=== PATIENT | male | born 2000 | race African-American/Black ===

== ENCOUNTER → 2021-04-17 | Emergency (ER) | payer BC ==
[~2021-04-17] VITALS: Ht 180.3 cm; Wt 77.1 kg
--- NOTE | 2021-04-18 00:22 | NUR ---
DISCHARGE INSTRUCTIONS GIVEN TO PATIENT. PT LEFT IN STABLE CONDITION
[2021-04-18 00:30] VITALS: BP 128/81
== END | disposition home or self-care (01) ==
LOC: ER 23:05
DX: S00.81XA Abrasion of other part of head, initial encounter (principal); F17.200 Nicotine dependence, unspecified, uncomplicated; Z98.890 Other specified postprocedural states; W18.09XA Striking against other object with subsequent fall, initial encounter; Y93.89 Activity, other specified; Y92.89 Other specified places as the place of occurrence of the external cause; Y99.8 Other external cause status
CPT/HCPCS: 70450-TC